=== PATIENT | male | born 1970 | race American Indian/Alaskan Native ===

== ENCOUNTER 2017-11-19 19:06 | Emergency (ER) | payer BC ==
[2017-11-19] MEDS ORDERED: ASPIRIN PO ONE (19:11)
[2017-11-19 19:28] LABS: Basophils % (Auto) 0.2 % (0.0-1.8); Eosinophils % (Auto) 0.2 % (0.0-4.3); Hematocrit 44.1 % (35.5-45.6); Hemoglobin 15.1 gm/dl (11.8-15.2); Lymphocytes # (Auto) 2.3 K/mm3 (1.2-5.4); Lymphocytes % (Auto) 16.9 % (13.4-35.0); Mean Corpuscular HGB Conc 34 % (32-34); Mean Corpuscular Hemoglobin 30 pg (28-32); Mean Corpuscular Volume 87 fl (84-94); Monocytes # (Auto) 0.9 K/mm3 (0.0-0.8); Platelet Count 278 K/mm3 (140-440); Red Blood Count 5.08 M/mm3 (3.65-5.03); Red Cell Distribution Width 13.6 % (13.2-15.2)
[2017-11-19] MEDS ORDERED: NITROSTAT SL ONE ×2 (19:34→19:38)
[2017-11-19 19:39] LABS: INR 1.24 (0.87-1.13); Partial Thromboplastin Time 26.8 Sec. (24.2-36.6)
--- NOTE | 2017-11-19 19:39 | Emergency Department Report ---
ED Chest Pain HPI - General Chief Complaint: Chest Pain Stated Complaint: CP Time Seen by Provider: 11/19/17 19:33 Source: patient Mode of arrival: Ambulatory Limitations: No Limitations - History of Present Illness Initial Comments: Patient is 46 years old male with history of asthma. Patient presented to the ER complaining of substernal chest pain described as pressure and tightness and sometimes sharp. He stated that pain increases with taking deep inspiration. Patient is also complaining of shortness of breath. He stated that he flew from [place] last night. Pain started immediately after he left the plane going to the parking lot. Patient denied any fever or cough. MD Complaint: chest pain -: Last night - Related Data Allergies Allergy/AdvReac Type Severity Reaction Status Date / Time No Known Allergies Allergy Verified 11/19/17 19:41 Heart Score - HEART Score History: Moderately suspicious EKG: Non-specific Age: 45-65 Risk factors: 1-2 risk factors Troponin: < normal limit HEART Score: 4 - Critical Actions Critical Actions: 4-6 pts:12-16.6% risk of adverse cardiac event. Should be admitted ED Review of Systems ROS: Stated complaint: CP Other details as noted in HPI Comment: All other systems reviewed and negative Constitutional: denies: chills, fever Respiratory: shortness of breath. denies: cough, orthopnea, SOB with exertion, SOB at rest, wheezing Cardiovascular: chest pain, palpitations Gastrointestinal: denies: abdominal pain, nausea, vomiting, diarrhea, constipation, hematemesis, hematochezia Neurological: denies: headache, weakness, numbness, paresthesias, confusion, abnormal gait ED Past Medical Hx - Past Medical History Hx Asthma: Yes - Surgical History Past Surgical History?: No - Social History Smoking Status: Never Smoker Substance Use Type: Marijuana ED Physical Exam - General Limitations: No Limitations General appearance: alert, in no apparent distress, anxious - Head Head exam: Present: atraumatic, normocephalic, normal inspection - Eye Eye exam: Present: normal appearance - ENT ENT exam: Present: normal exam, normal orophraynx, mucous membranes moist - Neck Neck exam: Present: normal inspection, full ROM. Absent: tenderness, meningismus, lymphadenopathy, thyromegaly - Respiratory Respiratory exam: Present: normal lung sounds bilaterally. Absent: respiratory distress, wheezes, rales, rhonchi, chest wall tenderness, accessory muscle use, decreased breath sounds, prolonged expiratory - Cardiovascular Cardiovascular Exam: Present: regular rate, normal rhythm, normal heart sounds - GI/Abdominal GI/Abdominal exam: Present: soft, normal bowel sounds. Absent: distended, tenderness, guarding, rebound, rigid, organomegaly, mass, bruit, pulsatile mass , hernia - Extremities Exam Extremities exam: Present: normal inspection, full ROM, normal capillary refill. Absent: pedal edema, calf tenderness - Back Exam Back exam: Present: normal inspection, full ROM - Neurological Exam Neurological exam: Present: alert, oriented X3, CN II-XII intact, normal gait, reflexes normal - Skin Skin exam: Present: warm, intact, normal color ED Course Vital Signs 11/19/17 11/19/17 11/19/17 19:16 19:25 19:30 Temperature 98.1 F Pulse Rate 116 H 111 H Respiratory 20 19 Rate Blood Pressure 160/118 165/123 165/123 O2 Sat by Pulse 98 98 98 Oximetry 11/19/17 11/19/17 11/19/17 19:39 19:48 20:01 Temperature Pulse Rate 108 H 110 H 110 H Respiratory 19 25 H Rate Blood Pressure 161/118 168/117 156/109 O2 Sat by Pulse 100 Oximetry 11/19/17 11/19/17 11/19/17 20:15 20:50 21:01 Temperature Pulse Rate 109 H 105 H 105 H Respiratory 24 19 Rate Blood Pressure 153/103 O2 Sat by Pulse 98 92 99 Oximetry 11/19/17 21:15 Temperature Pulse Rate 105 H Respiratory 22 Rate Blood Pressure 139/107 O2 Sat by Pulse 97 Oximetry - Reevaluation(s) Reevaluation #1: 11/19/17 21:32 I discussed the patient with [facility]. They're advised to call me back as soon as they get in touch with the cardiothoracic surgeon stat. ED Medical Decision Making - Lab Data Result diagrams: 11/19/17 19:18 11/19/17 19:18 - EKG Data -: EKG Interpreted by Me EKG shows normal: sinus rhythm Rate: tachycardia - EKG Data Interpretation: nonspecific ST-T wave jean - Radiology Data Radiology results: report reviewed Referring Physician: LUBNA MOISE Patient Name: JODY HELMS Date of : 1970 Sex: Male Report Date: 2017-11-19 Report Status: Finalized Findings [facility] [address] [place] [address] Cat Scan Report Signed Patient: JODY HELMS MR#: [id number] : 1970 Acct:[id number] Age/Sex: 46 / M ADM Date: 11/19/17 Loc: ED Attending Dr: Ordering Physician: LUBNA MOISE Date of Service: 11/19/17 Procedure(s): CT angio chest Accession Number(s): [id number] cc: LUBNA MOISE FINAL REPORT EXAM: CT ANGIO CHEST HISTORY: CHEST PAIN WITH SOB onset of chest pain was yesterday. Persists with dizziness and elevated blood pressure. TECHNIQUE: Following IV administration of 100 cc of Omnipaque 350 axial helical imaging was performed through the chest with sagittal and coronal reformatted images and maximum intensity projection images obtained. Comparison: Chest x-ray also performed today FINDINGS: There are areas of pulmonary consolidation with volume loss in the left upper lobe and lower lobes bilaterally most suggestive of areas of atelectasis. There is no evidence of pneumothorax or pleural fluid collection. The trachea and bronchi are patent. The heart appears to be upper limits of normal size. There is a large pericardial fluid collection that measures approximately 2 centimeters in the maximal depth.. The Hounsfield units are suggestive of blood products. There is stranding of the anterior mediastinal fat. The thoracic aorta is notable for mild aneurysmal dilatation of the ascending thoracic aorta at the level of the right pulmonary artery with maximal axial caliber of 4.2 centimeters. There is an irregular contour of the ascending thoracic aorta with possible intimal flap which could represent a dissection. This is localized to the ascending aorta. The remainder of the thoracic aorta the is normal caliber. The pulmonary arteries are well opacified. There are no filling defects within the pulmonary arteries to suggest the presence of pulmonary artery emboli. The visualized portion the upper abdomen is unremarkable. The bony structures are notable for evidence of degenerative disc and endplate change in the visualized portion of the cervical spine. IMPRESSION: 1. Findings most suggestive of aneurysmal dilatation of the ascending thoracic aorta with possible dissection and evidence of rupture in to the pericardium with pericardial effusion with Hounsfield units most consistent with blood products. 2. Areas of pulmonary consolidation most suggestive of atelectasis. 3. No evidence of pulmonary artery emboli. The above findings were discussed with Dr. Moise at November 19, 2017. 9:15 p.m. 4. Spondylitic change cervical spine. Transcribed By: ED Dictated By: SIDRA SCHWAB MD Electronically Authenticated By: SIDRA CSHWAB MD Signed Date/Time: 11/19/172118 DD/ 18 TD/TT: 11/19/172118 - Medical Decision Making I discussed the patient is Dr. Bennett from [facility], I informed him about the patient and his CT chest finding with aortic dissection and pericardial effusion most likely secondary to rupture aneurysm. Dr. Bennett advised to transfer patient to [facility] ICU. Critical Care Time: Yes Critical care time in (mins) excluding proc time.: 45 Critical care attestation.: If time is entered above; I have spent that time in minutes in the direct care of this critically ill patient, excluding procedure time. ED Disposition Clinical Impression: Chest pain, Thoracic aortic aneurysm, ruptured, Thoracic aortic dissection Disposition: DC/TX-70 ANOTHER TYPE HLTHCARE Is pt being admited?: No Condition: Stable Instructions: Chest Pain (ED)
[2017-11-19 19:40] LABS: BUN/Creatinine Ratio 13; Blood Urea Nitrogen 13 mg/dL (9-20); Calcium 9.9 mg/dL (8.4-10.2); Hemolysis Index 11
[2017-11-19] MEDS ORDERED: MORPHINE IV ONE (21:12)
[2017-11-19] MEDS ORDERED: ZOFRAN IV ONE (21:12)
[2017-11-19] MEDS ORDERED: NORMODYNE IV ONE (21:12)
[2017-11-19] MEDS ORDERED: NACL 0.9% 1,000 ML IR ONE (21:20)
--- NOTE | 2017-11-19 21:20 | Cat Scan Report ---
FINAL REPORT EXAM: CT ANGIO CHEST HISTORY: CHEST PAIN WITH SOB onset of chest pain was yesterday. Persists with dizziness and elevated blood pressure. TECHNIQUE: Following IV administration of 100 cc of Omnipaque 350 axial helical imaging was performed through the chest with sagittal and coronal reformatted images and maximum intensity projection images obtained. Comparison: Chest x-ray also performed today FINDINGS: There are areas of pulmonary consolidation with volume loss in the left upper lobe and lower lobes bilaterally most suggestive of areas of atelectasis. There is no evidence of pneumothorax or pleural fluid collection. The trachea and bronchi are patent. The heart appears to be upper limits of normal size. There is a large pericardial fluid collection that measures approximately 2 centimeters in the maximal depth.. The Hounsfield units are suggestive of blood products. There is stranding of the anterior mediastinal fat. The thoracic aorta is notable for mild aneurysmal dilatation of the ascending thoracic aorta at the level of the right pulmonary artery with maximal axial caliber of 4.2 centimeters. There is an irregular contour of the ascending thoracic aorta with possible intimal flap which could represent a dissection. This is localized to the ascending aorta. The remainder of the thoracic aorta the is normal caliber. The pulmonary arteries are well opacified. There are no filling defects within the pulmonary arteries to suggest the presence of pulmonary artery emboli. The visualized portion the upper abdomen is unremarkable. The bony structures are notable for evidence of degenerative disc and endplate change in the visualized portion of the cervical spine. IMPRESSION: 1. Findings most suggestive of aneurysmal dilatation of the ascending thoracic aorta with possible dissection and evidence of rupture in to the pericardium with pericardial effusion with Hounsfield units most consistent with blood products. 2. Areas of pulmonary consolidation most suggestive of atelectasis. 3. No evidence of pulmonary artery emboli. The above findings were discussed with Dr. Lazar at November 19, 2017. 9:15 p.m. 4. Spondylitic change cervical spine.
--- NOTE | 2017-11-19 21:48 | XRay Report ---
FINAL REPORT EXAM: XR CHEST ROUTINE 2V HISTORY: cp TECHNIQUE: Frontal portable view of the chest Comparison: CT angiogram chest also performed today FINDINGS: There is mild elevation the left hemidiaphragm. There are patchy areas of pulmonary consolidation in both lungs that is best visualized on the lateral view. The cardiac silhouette is within normal limits of size. The thoracic aorta is unremarkable. The bony structures are unremarkable. IMPRESSION: 1. Patchy areas of pulmonary consolidation both lungs. 2. Otherwise unremarkable study. The pericardial effusion and aneurysmal dilatation of the ascending thoracic aorta demonstrated on the CT angiogram chest are not as clearly demonstrated with plain film imaging.
[2017-11-19] MEDS ORDERED: BREVIBLOC DRIP 2.5GM/250ML 2.5 GM/250 ML BAG IV ONE (21:51)
[2017-11-19 22:37] VITALS: BP 139/110
== END 2017-11-19 23:33 | disposition other institution (70) ==
LOC: ED 19:06
DX: I71.1 Thoracic aortic aneurysm, ruptured (principal); R07.89 Other chest pain; J45.909 Unspecified asthma, uncomplicated
CPT/HCPCS: 36415; 71046; 71275; 80048; 83880; 84484; 85025; 85379; 85610; 85730; 93005; 93010; 96365; 96375; 99291; J2270; J2405; Q9967